=== PATIENT | male | born 1985 | race Caucasian/White ===

== ENCOUNTER 2017-07-22 19:39 | Emergency (ER) | payer SELFPAY ==
[2017-07-22 19:47] VITALS: RESP 20; O2SAT 93
--- NOTE | 2017-07-22 19:51 | EDPHY ---
H & P Time Seen by Provider: 07/22/17 19:48 HPI/ROS: CHIEF COMPLAINT: Cough HISTORY OF PRESENT ILLNESS: This patient is a 32 y/o male complaining of persistent productive cough. He has been coughing up phlegm since March and now has green-colored sputum. He generally smokes 2 packs per day, but has cut back significantly in the past week to 2-3 cigarettes per day. He has had difficulty sleeping due to his cough. He had noted wheezes and some shortness of breath. He states he has not been able to eat due to painful sores in his mouth which developed after he bit his lower lip. He has has a sore throat as well. He has taken ibuprofen for his throat pain without much relief. Last night, he felt febrile and had chills. He did not receive a flu short this year. No chest pain, vomiting, diarrhea, or other associated symptoms. REVIEW OF SYSTEMS: A 10 point review of systems was performed and is negative with the exception of the elements mentioned in the history of present illness. Past Medical/Surgical History: Denies. Social History: Daily cigarette smoker. Lives in [place]. Student at [employer]. Smoking Status: Heavy smoker Physical Exam: General Appearance: Alert, pleasant Eyes: Pupils equal and round, no conjunctival pallor or injection ENT, Mouth: Mucous membranes moist Neck: Normal inspection Respiratory: Lungs are clear to auscultation Cardiovascular: Regular rate and rhythm Gastrointestinal: Abdomen is soft and non-tender Neurological: A&O, nonfocal exam Skin: Warm and dry, no rash Extremities: Nontender, no pedal edema Psychiatric: Mood and affect normal Constitutional: Initial Vital Signs Temperature (C) 36.4 C 07/22/17 19:44 Heart Rate 78 07/22/17 19:44 Respiratory Rate 20 07/22/17 19:44 Blood Pressure 138/74 H 07/22/17 19:44 O2 Sat (%) 93 07/22/17 19:44 O2 Delivery Mode Room Air Allergies/Adverse Reactions: No Known Allergies Allergy (Unverified 12/04/09 19:19) Home Medications: Medication Instructions Recorded Albuterol [Proventil Inhaler HFA 2 puffs IH QID PRN #1 mdi 07/22/17 (*)] Azithromycin [Zithromax] 250 mg PO DAILY #6 tab 02/15/18 Medical Decision Making - Diagnostics Imaging Results: Imaging Impressions Chest X-Ray 07/22/17 19:48 Impression: Airways disease. Imaging: I viewed and interpreted images myself ED Course/Re-evaluation: 32 y/o male presents with 4 month history of productive cough. Exam unremarkable. Plan to administer DuoNeb and 8mg PO Decadron for symptom relief. Plan for chest x-ray. Chest x-ray negative for pneumonia. Plan to d/c home in good condition with Zithromax and albuterol inhaler. Discussed smoking cessation with pt. He is comfortable with this plan. Departure - Departure Disposition: Home, Routine, Self-Care Clinical Impression: Acute bronchitis Qualifiers: Bronchitis organism: other organism Qualified Code(s): J20.8 - Acute bronchitis due to other specified organisms Condition: Good Instructions: Acute Bronchitis (ED) Additional Instructions: 1. Take Zithromax as prescribed. 2. Use your albuterol inhaler as prescribed as needed for difficulty breathing. 3. Avoid spicy or acidic foods until your mouth heals. 4. Follow up with a primary care provider. Adult Pain & Fever Control: We recommend Acetaminophen (Tylenol) and Ibuprofen (Motrin,Advil) for pain and fever control. When fever is high or pain severe, both drugs can be used at the same time, but at different intervals. Please note the time differences. Your dose is: Acetaminophen 650mg every 4 to 6 hours Ibuprofen 600mg every 6-8 hours with food Note: do not take Acetaminophen with Hydrocodone (Vicodin, Lortab) or Oxycodone (Percocet). These medications also contain Acetaminophen. No more than 3000mg of Acetaminophen should be taken in 24 hours (for an adult). Referrals: Tom Kinney DO [Doctor of Osteopathy] - As per Instructions Prescriptions: Albuterol [Proventil Inhaler HFA (*)] 2 puffs IH QID PRN #1 mdi PRN Reason: Short Of Breath/Dyspnea Azithromycin [Zithromax] 250 mg PO DAILY #6 tab Report Scribed for: Rae Lawler Report Scribed by: Lesli Argueta Date of Report: 07/22/17 Time of Report: 19:51 Physician Review and Approval Statement: 07/22/17 19:51 Portions of this note were transcribed by a medical data entry clerk. I personally performed a history, physical exam, medical decision making, and confirmed accuracy of information the transcribed note.
[2017-07-22] MEDS ORDERED: IPRATROPIUM/ALBUTEROL 3 ML DEYVIAL IH ONE (20:09)
[2017-07-22] MEDS ORDERED: DEXAMETHASONE 4 MG TAB PO ONE (20:09)
[2017-07-22 20:51] VITALS: BP 130/61; PULSE 79; TEMP 98.4
== END 2017-07-22 20:51 | disposition home or self-care (01) ==
DX: J20.8 Acute bronchitis due to other specified organisms (principal); F17.210 Nicotine dependence, cigarettes, uncomplicated